=== PATIENT | female | born 1990 ===

== ENCOUNTER 2018-10-25 09:19 | Emergency (ER) | payer OTHER ==
[2018-10-25 09:52] VITALS: BMI 25.7
[2018-10-25 09:55] VITALS: O2SAT 99
--- NOTE | 2018-10-25 10:02 | ED PDOC ---
HPI: Female Pain Time Seen by Provider: 10/25/18 09:28 Chief Complaint (Provider): lower abdominal pain History Per: Patient History/Exam Limitations: no limitations Onset/Duration Of Symptoms: Days Current Symptoms Are (Timing): Still Present Quality Of Discomfort: "Pain" Associated Symptoms: Urinary Symptoms. denies: Fever, Chills, Nausea, Vomiting, Back Pain, Chest Pain Additional History Per: Patient Additional Complaint(s): 28yo female, otherwise well, currently 2 months , comes to ER reporting lower pelvic pain, burning upon urination x 4 days. She also reports associated nausea but denies any vomiting, diarrhea. She also denies any fever, chills, chest pain, shortness of breath, vaginal bleeding or discharge. No other complaints. PMD: None provided Abnormal Vaginal Bleeding: No Last Menstral Period: currently 2 mo Past Medical History Reviewed: Historical Data, Nursing Documentation, Vital Signs Vital Signs: Last Vital Signs Temp 97 F L 10/25/18 09:20 Pulse 63 10/25/18 09:20 Resp 18 10/25/18 09:20 BP 115/65 10/25/18 09:20 Pulse Ox 99 10/25/18 09:20 - Medical History PMH: No Chronic Diseases - Surgical History Surgical History: - Family History Family History: States: No Known Family Hx - Social History Alcohol: None Drugs: Denies - Allergies Allergies/Adverse Reactions: Allergies Allergy/AdvReac Type Severity Reaction Status Date / Time No Known Allergies Allergy Verified 10/25/18 09:52 Review of Systems ROS Statement: Except As Marked, All Systems Reviewed And Found Negative Constitutional: Negative for: Fever, Chills Cardiovascular: Negative for: Chest Pain Respiratory: Negative for: Shortness of Breath Gastrointestinal: Negative for: Nausea, Vomiting Genitourinary Female: Positive for: Dysuria, Pelvic Pain. Negative for: Hematuria, Vaginal Discharge, Vaginal Bleeding Physical Exam - Reviewed Nursing Documentation Reviewed: Yes Vital Signs Reviewed: Yes - Physical Exam Appears: Positive for: Non-toxic, No Acute Distress Head Exam: Positive for: ATRAUMATIC, NORMAL INSPECTION, NORMOCEPHALIC Skin: Positive for: Normal Color Eye Exam: Positive for: Normal appearance Neck: Positive for: Supple Cardiovascular/Chest: Positive for: Regular Rate, Rhythm. Negative for: Tachycardia Respiratory: Positive for: Normal Breath Sounds. Negative for: Respiratory Distress Pulses-Radial (L): 2+ Pulses-Radial (R): 2+ Gastrointestinal/Abdominal: Positive for: Soft, Tenderness (lower abdomen/pelvic mild tenderness) Back: Positive for: Normal Inspection. Negative for: L CVA Tenderness, R CVA Tenderness Extremity: Positive for: Normal ROM. Negative for: Pedal Edema Neurological/Psych: Positive for: Awake, Alert - Laboratory Results Result Diagrams: 10/25/18 10:15 10/25/18 10:15 Interpretation Of Abn Labs: no acute - ECG O2 Sat by Pulse Oximetry: 99 (RA) Pulse Ox Interpretation: Normal - CT Scan/US us Other Rad Studies (CT/US): Read By Radiologist Other Rad Interpretation: SLIUP - Progress ED Course And Treament: 1426: Stable. AAOx3. Pain free. Tolerated PO. FU with pcp. Medical Decision Making Medical Decision Makinyo with lower abdominal pain, dysuria Plan: -- Labs -- Udip -- OS OB ScribeAttestation: Documented byEvie Ocampo, acting as a scribe for Luís Cohen MD. Provider ScribeAttestation: All medical record entries made by the Scribe were at my direction and personally dictated by me. I have reviewed the chart and agree that the record accurately reflects my personal performance of the history, physical exam, medical decision making, and the department course for this patient. I have also personally directed, reviewed, and agree with the discharge instructions and disposition. Disposition - Clinical Impression Clinical Impression: Threatened - Patient ED Disposition Is Patient to be Admitted: No Counseled Patient/Family Regarding: Studies Performed, Diagnosis, Need For Followup - Disposition [facility] - [facility] Disposition: Routine/Home Disposition Time: 14:27 Condition: STABLE Additional Instructions: Return if not better in 3 days. Instructions: Threatened Miscarriage Print Language: BAHRAINI
[2018-10-25 10:41] LABS: BASO % 0.4 % (0.0-2.0); EOS # 0.1 K/uL (0.0-0.7); HEMOGLOBIN 12.6 g/dL (12.0-16.0); LYMPH # 1.6 K/uL (1.0-4.3); LYMPH % 22.7 % (20.0-40.0); MEAN CELL VOLUME 86.4 fl (81.0-99.0); MEAN CORPUSCULAR HEMOGLOBIN 28.8 pg (27.0-31.0); MEAN CORPUSCULAR HGB CONC 33.3 g/dL (33.0-37.0); MEAN PLATELET VOLUME 8.6 fl (7.2-11.7); MONO # 0.4 K/uL (0.0-0.8); MONO % 5.7 % (0.0-10.0); NEUT # 5.1 K/uL (1.8-7.0); NEUT % 70.2 % (50.0-75.0); NRBC % 0.1 % (0.0-0.0); RBC 4.39 Mil/uL (3.80-5.20); RED CELL DISTRIBUTION WIDTH 12.8 % (11.5-14.5); WHITE BLOOD COUNT 7.3 K/uL (4.8-10.8)
[2018-10-25 10:55] LABS: ALB/GLOB RATIO 1.1 (1.0-2.1); ALBUMIN 3.6 g/dL (3.5-5.0); ALT/SGPT 24 U/L (9-52); AST/SGOT 19 U/L (14-36); BLOOD UREA NITROGEN 9 mg/dl (7-17); CALCIUM 9.3 mg/dL (8.4-10.2); GFR NON-AFRICAN AMERICAN > 60
--- NOTE | 2018-10-25 12:30 | US ---
Date of service: 10/25/2018 PROCEDURE: OB Pelvic Ultrasound HISTORY: preg and pain LMP: 06/03/2018 COMPARISON: None available. FINDINGS: UTERUS: Gestational sac: Single live intrauterine fetus in transverse presentation. BPD: 2.44 cm corresponding to 14 weeks and 1 day of gestational age. HC: 9.37 cm corresponding to 14 weeks and 2 days of gestational age. AC: 7.69 cm corresponding to 14 weeks and 1 day of gestational age. FL: 1.41 cm corresponding to 14 weeks and 1 day of gestational age. Heart rate: 152 bpm. age (Ultrasound estimated): 14 weeks and 1 day Nyla-gestational hemorrhage: None. Date of delivery (Ultrasound estimated) : 04/24/2019 Placenta is posterior. CERVIX: Measures 5.0 cm. Long and closed. No cervical abnormality seen. RIGHT OVARY: Not visualized. LEFT OVARY: Not visualized. FREE FLUID: None. OTHER FINDINGS: None. IMPRESSION: Single live intrauterine fetus in transverse presentation with mean gestational age of 14 weeks and 1 day. The estimated date of delivery by ultrasound is 04/24/2019. There is a discrepancy with the clinical dates. Clinical follow-up is advised. Please note this is a limited OB ultrasound performed on an emergent basis. Follow-up dedicated anatomic survey is recommended.
[2018-10-25 16:47] VITALS: BP 110/75; PULSE 59; RESP 16; TEMP 98.5
== END 2018-10-25 14:50 | disposition home or self-care (01) ==
LOC: H.ER 09:19
DX: O20.0 Threatened abortion (principal); Z3A.14 14 weeks gestation of pregnancy